=== PATIENT | male | born 1965 | race Caucasian/White ===

== ENCOUNTER 2017-12-13 09:14 | Inpatient (IN) | payer MEDICAID ==
[~2017-12-13] VITALS: Ht 190.5 cm; Wt 124.0 kg
[~2017-12-13 09:14] MED LIST: HTN MED; METFORMIN; NEUROPATHY MED; OMEP-110 PO; SUCR1ORA5 PO
[2017-12-13] MEDS ORDERED: TAMS-11 PO (11:47)
[2017-12-13] MEDS ORDERED: LISI-170 PO (11:47)
[2017-12-13] MEDS ORDERED: METF500T4 PO (11:47)
[2017-12-13] MEDS ORDERED: SUCR1TAB PO (11:47)
[2017-12-13] MEDS ORDERED: FURO20TA3 PO (11:47)
[2017-12-13] MEDS ORDERED: OMEP40CA6 PO (11:47)
[2017-12-13] MEDS ORDERED: SIMV20TA3 PO (11:47)
[2017-12-13] MEDS ORDERED: GLIP5TAB10 PO (11:47)
[2017-12-13] MEDS ORDERED: SODIUM CHLORIDE FLUSH 10ML SYR IVF ONE (12:00)
[2017-12-13] MEDS ORDERED: AMPICILLIN/SULBACTAM 3 GM in SODIUM CHLORIDE 0.9% 100 ML IVPB ONE (12:00)
[2017-12-13 12:12] LABS: BASOPHILS # (AUTO) 0.03 x10^3/uL (0-0.1); BASOPHILS % (AUTO) 0 % (0-1); EOSINOPHILS # (AUTO) 0.16 x10^3/uL (0-0.4); EOSINOPHILS % (AUTO) 2 % (1-7); INTERNATIONAL NORMALIZED RATIO 1.06 (0.93-1.1); LYMPHOCYTES % (AUTO) 24 % (22-44); MD NO; MEAN CORPUSCULAR HGB CONC 33.5 g/dL (33.2-36.2); MEAN CORPUSCULAR VOLUME 86.6 fL (81-97); MEAN PLATELET VOLUME 7.8 fL (7.4-10.4); MONOCYTES # (AUTO) 0.68 x10^3/uL (0.2-0.8); MONOCYTES % (AUTO) 7 % (2-9); NEUTROPHILS # (AUTO) 6.18 x10^3/uL (1.8-6.8); NEUTROPHILS % (AUTO) 67 % (42-75); PLATELET COUNT 220 x10^3/uL (130-400); PROTHROMBIN TIME 10.9 Seconds (9.6-11.5); RED BLOOD COUNT 5.49 x10^6/uL (4.38-5.82); RED CELL DISTRIBUTION WIDTH 13.8 % (9.4-14.8)
[2017-12-13 12:17] LABS: ALANINE AMINOTRANSFERASE 23 U/L (12-78); ALBUMIN 3.5 g/dL (3.4-5.0); ANION GAP 8 mmol/L (5-15); CALCIUM 8.9 mg/dL (8.5-10.1); CHLORIDE 98 mmol/L (98-107); CREATININE 0.94 mg/dL (0.7-1.3)
[2017-12-13 12:17] LABS: HCT (SEDRATE) 47.2 % (39.2-51.8)
[2017-12-13 12:24] LABS: ALKALINE PHOSPHATASE 76 U/L (45-117); BILIRUBIN,TOTAL 0.3 mg/dL (0.2-1.0); TOTAL PROTEIN 7.7 g/dL (6.4-8.2)
[2017-12-13] MEDS ORDERED: VANCOMYCIN PER PHARMACY MC PRN (13:00)
[2017-12-13] MEDS: AMPICILLIN/SULBACTAM 3 GM in SODIUM CHLORIDE 0.9% 100 ML IV SCH ×2 (13:00→20:48)
[2017-12-13] MEDS ORDERED: ENALAPRILAT 1.25 MG/ML, 2ML IVPush PRN (13:00)
[2017-12-13] MEDS ORDERED: ONDANSETRON ODT 4 MG PO PRN (13:00)
[2017-12-13] MEDS ORDERED: ONDANSETRON 2MG/ML, 2ML IVPush PRN (13:00)
[2017-12-13] MEDS ORDERED: ACETAMINOPHEN 325 MG TABLET PO PRN (13:00)
[2017-12-13] MEDS ORDERED: DEXTROSE 4 GM TAB.CHEW PO PRN (13:00)
[2017-12-13] MEDS ORDERED: HYDROcodone/APAP 5/325 TABLET PO PRN (13:00)
[2017-12-13] MEDS ORDERED: DEXTROSE 50%, 50ML SYRINGE IVPush PRN (13:00)
[2017-12-13] MEDS ORDERED: LABETALOL 5MG/ML, 20ML IVPush PRN (13:00)
[2017-12-13] MEDS ORDERED: DOCUSATE 100 MG CAPSULE PO PRN (13:00)
[2017-12-13] MEDS ORDERED: POLYETHYLENE GLYCOL 17 GM PACKET PO PRN (13:00)
[2017-12-13] MEDS ORDERED: GLUCAGON 1 MG IM PRN (13:00)
[2017-12-13 13:38] LABS: HEMOGLOBIN A1C 10.5 % (4.2-6.3)
[2017-12-13 14:24] VITALS: BP 123/79
[2017-12-13] MEDS ORDERED: PHARMACOKINETIC MONITORING MC PRN (14:30)
[2017-12-13] MEDS ORDERED: PHARMACOKINETIC CONSULTATION MC ONE (14:30)
[2017-12-13] MEDS ORDERED: GADOBUTROL 10 MMOL/10 ML PFS ONE (15:32)
[2017-12-13] MEDS: SODIUM CHLORIDE 0.9% 1,000 ML IV SCH (17:11)
[2017-12-13] MEDS: SUCRALFATE 1 GM TABLET PO SCH ×2 (17:11→20:48)
[2017-12-13] MEDS: ENOXAPARIN 40 MG/0.4 ML SQ SCH (17:11)
[2017-12-13] MEDS: VANCOMYCIN 2,000 MG in SODIUM CHLORIDE 0.9% 500 ML IV SCH (17:12)
[2017-12-13] MEDS: NICOTINE 14MG/24 HR PATCH.TD24 TD SCH (17:12)
[2017-12-13] MEDS: INSULIN LISPRO 100 UNITS/ML, PEN SQ-INSULIN SCH ×2 (17:43→21:10)
[2017-12-13 19:10] VITALS: BP 107/67
[2017-12-13] MEDS: SODIUM CHLORIDE FLUSH 10ML SYR IVF SCH (20:48)
[2017-12-13] MEDS: OMEPRAZOLE 20 MG CAPSULE.DR PO SCH (20:48)
[2017-12-13] MEDS: TAMSULOSIN 0.4 MG CAP.ER.24H PO SCH (20:48)
[2017-12-13] MEDS: SIMVASTATIN 20 MG TABLET PO SCH (20:48)
[2017-12-14 02:57] VITALS: BP 108/64
[2017-12-14] MEDS: AMPICILLIN/SULBACTAM 3 GM in SODIUM CHLORIDE 0.9% 100 ML IV SCH ×4 (03:12→21:42)
[2017-12-14 05:35] LABS: BASOPHILS # (AUTO) 0.03 x10^3/uL (0-0.1); BASOPHILS % (AUTO) 0 % (0-1); EOSINOPHILS # (AUTO) 0.18 x10^3/uL (0-0.4); EOSINOPHILS % (AUTO) 2 % (1-7); LYMPHOCYTES # (AUTO) 1.98 x10^3/uL (1-3.4); LYMPHOCYTES % (AUTO) 23 % (22-44); MD NO; MEAN CORPUSCULAR HEMOGLOBIN 29.1 pg (27.5-34.5); MEAN CORPUSCULAR HGB CONC 33.7 g/dL (33.2-36.2); MEAN CORPUSCULAR VOLUME 86.4 fL (81-97); MEAN PLATELET VOLUME 7.7 fL (7.4-10.4); MONOCYTES # (AUTO) 0.63 x10^3/uL (0.2-0.8); MONOCYTES % (AUTO) 7 % (2-9); NEUTROPHILS # (AUTO) 5.87 x10^3/uL (1.8-6.8); NEUTROPHILS % (AUTO) 68 % (42-75); PLATELET COUNT 206 x10^3/uL (130-400); RED BLOOD COUNT 5.07 x10^6/uL (4.38-5.82); RED CELL DISTRIBUTION WIDTH 13.8 % (9.4-14.8)
[2017-12-14 05:47] LABS: CHLORIDE 101 mmol/L (98-107)
[2017-12-14 05:55] LABS: ANION GAP 6 mmol/L (5-15); CALCIUM 8.3 mg/dL (8.5-10.1); CREATININE 0.96 mg/dL (0.7-1.3)
[2017-12-14] MEDS: SUCRALFATE 1 GM TABLET PO SCH ×4 (06:23→21:42)
[2017-12-14] MEDS: SODIUM CHLORIDE 0.9% 1,000 ML IV SCH (06:23)
[2017-12-14] MEDS: VANCOMYCIN 2,000 MG in SODIUM CHLORIDE 0.9% 500 ML IV SCH ×2 (06:24→16:51)
[2017-12-14 08:18] VITALS: BP 114/72
[2017-12-14] MEDS: FUROSEMIDE 20 MG TABLET PO SCH (08:36)
[2017-12-14] MEDS: LISINOPRIL 10 MG TABLET PO SCH (08:36)
[2017-12-14] MEDS: OMEPRAZOLE 20 MG CAPSULE.DR PO SCH ×2 (08:37→21:46)
[2017-12-14] MEDS: SODIUM CHLORIDE FLUSH 10ML SYR IVF SCH ×2 (08:37→21:46)
[2017-12-14] MEDS: INSULIN LISPRO 100 UNITS/ML, PEN SQ-INSULIN SCH ×4 (08:37→21:03)
[2017-12-14 12:31] VITALS: BP 97/66
[2017-12-14] MEDS: NICOTINE 14MG/24 HR PATCH.TD24 TD SCH (16:50)
[2017-12-14] MEDS: metFORMIN 500 MG TABLET PO SCH (16:51)
[2017-12-14] MEDS: ENOXAPARIN 40 MG/0.4 ML SQ SCH (16:51)
[2017-12-14 20:43] VITALS: BP 106/69
[2017-12-14] MEDS: TAMSULOSIN 0.4 MG CAP.ER.24H PO SCH (21:42)
[2017-12-14] MEDS: SIMVASTATIN 20 MG TABLET PO SCH (21:43)
[2017-12-15] MEDS: SODIUM CHLORIDE 0.9% 1,000 ML IV SCH (01:46)
[2017-12-15 02:05] VITALS: BP 107/65
[2017-12-15] MEDS: AMPICILLIN/SULBACTAM 3 GM in SODIUM CHLORIDE 0.9% 100 ML IV SCH (03:25)
[2017-12-15] MEDS: SUCRALFATE 1 GM TABLET PO SCH ×2 (05:23→11:53)
[2017-12-15] MEDS: VANCOMYCIN 2,000 MG in SODIUM CHLORIDE 0.9% 500 ML IV SCH (05:23)
[2017-12-15 06:18] VITALS: BP 109/70
[2017-12-15] MEDS ORDERED: DOXY100T PO (06:59)
[2017-12-15] MEDS: FUROSEMIDE 20 MG TABLET PO SCH (08:40)
[2017-12-15] MEDS: OMEPRAZOLE 20 MG CAPSULE.DR PO SCH (08:40)
[2017-12-15] MEDS: LISINOPRIL 10 MG TABLET PO SCH (08:40)
[2017-12-15] MEDS: metFORMIN 500 MG TABLET PO SCH (08:40)
[2017-12-15] MEDS: SODIUM CHLORIDE FLUSH 10ML SYR IVF SCH (08:46)
[2017-12-15] MEDS: INSULIN LISPRO 100 UNITS/ML, PEN SQ-INSULIN SCH ×2 (08:46→11:53)
[2017-12-15] MEDS ORDERED: DOXYCYCLINE 100MG TABLET PO SCH (09:00)
== END 2017-12-15 15:53 | disposition home health service (06) | DRG 603 ==
LOC: ED 12:14 → EDIP 12:27 → 3NE 14:02 → DCLOUNGE 12-15 15:33
PROVIDERS: ADMIT Family Medicine; ATTEND Family Medicine
DX: L03.031 Cellulitis of right toe (principal); E11.621 Type 2 diabetes mellitus with foot ulcer; L97.519 Non-pressure chronic ulcer of other part of right foot with unspecified severity; E11.65 Type 2 diabetes mellitus with hyperglycemia; E11.622 Type 2 diabetes mellitus with other skin ulcer; E78.00 Pure hypercholesterolemia, unspecified; F17.210 Nicotine dependence, cigarettes, uncomplicated; I10 Essential (primary) hypertension; I87.2 Venous insufficiency (chronic) (peripheral); K21.9 Gastro-esophageal reflux disease without esophagitis; K25.9 Gastric ulcer, unspecified as acute or chronic, without hemorrhage or perforation; Z80.42 Family history of malignant neoplasm of prostate; Z87.11 Personal history of peptic ulcer disease
CPT/HCPCS: 36415; 80048; 80053; 82962; 83036; 85025; 85610; 85651; 86140; 87040; 87070; 87077; 87147; 87186; 87205; 93922; A9585; J0295; J1650; J3370; J1815; J7030; J7040

== ENCOUNTER 2018-02-22 09:30 | Emergency (ER) | payer OTHER ==
[~2018-02-22] VITALS: Ht 190.5 cm; Wt 99.7 kg
[~2018-02-22 09:30] MED LIST changes: +DOXY100T PO; +FURO20TA3 PO; +GLIP5TAB10 PO; +LISI-170 PO; +METF500T4 PO; +OMEP40CA6 PO; +SIMV20TA3 PO; +SUCR1TAB PO; +TAMS-11 PO
[2018-02-22] MEDS ORDERED: SODIUM CHLORIDE FLUSH 10ML SYR IVF ONE (10:00)
[2018-02-22] MEDS ORDERED: SODIUM CHLORIDE 0.9% 1,000ML IVBOLUS ONE (10:00)
[2018-02-22 10:13] LABS: BASOPHILS # (AUTO) 0.03 x10^3/uL (0-0.1); BASOPHILS % (AUTO) 0 % (0-1); EOSINOPHILS # (AUTO) 0.07 x10^3/uL (0-0.4); EOSINOPHILS % (AUTO) 1 % (1-7); LYMPHOCYTES # (AUTO) 2.52 x10^3/uL (1-3.4); LYMPHOCYTES % (AUTO) 27 % (22-44); MD NO; MEAN CORPUSCULAR HGB CONC 33.5 g/dL (33.2-36.2); MEAN CORPUSCULAR VOLUME 86.7 fL (81-97); MEAN PLATELET VOLUME 7.2 fL (7.4-10.4); MONOCYTES # (AUTO) 0.57 x10^3/uL (0.2-0.8); MONOCYTES % (AUTO) 6 % (2-9); NEUTROPHILS # (AUTO) 6.29 x10^3/uL (1.8-6.8); NEUTROPHILS % (AUTO) 66 % (42-75); PLATELET COUNT 171 x10^3/uL (130-400); RED BLOOD COUNT 5.22 x10^6/uL (4.38-5.82); RED CELL DISTRIBUTION WIDTH 15.2 % (9.4-14.8)
[2018-02-22 10:30] LABS: ALANINE AMINOTRANSFERASE 24 U/L (12-78); ALBUMIN 3.2 g/dL (3.4-5.0); ANION GAP 11 mmol/L (5-15); CALCIUM 8.3 mg/dL (8.5-10.1); CHLORIDE 98 mmol/L (98-107)
[2018-02-22 10:33] LABS: ALKALINE PHOSPHATASE 65 U/L (45-117); BILIRUBIN,TOTAL 0.7 mg/dL (0.2-1.0); TOTAL PROTEIN 6.5 g/dL (6.4-8.2)
[2018-02-22 11:19] LABS: MICROSCOPIC NOT IND
[2018-02-22 11:22] LABS: CULTURE INDICATED? NO
[2018-02-22 13:40] VITALS: BP 125/82
== END 2018-02-22 14:04 | disposition home or self-care (01) ==
LOC: ED 10:49
DX: R53.1 Weakness (principal); E11.65 Type 2 diabetes mellitus with hyperglycemia; I10 Essential (primary) hypertension; E78.00 Pure hypercholesterolemia, unspecified; K21.9 Gastro-esophageal reflux disease without esophagitis; E11.40 Type 2 diabetes mellitus with diabetic neuropathy, unspecified
CPT/HCPCS: 36415; 71045; 74176; 80053; 81003; 82140; 83690; 85025; 96360; 99285; J7030

== ENCOUNTER → 2019-02-16 | Outpatient (CLI) | payer MEDICAID ==
[~2019-02-16] MED LIST changes: +GADOBUTROL 15 MMOL/15 ML VIAL ONE; +METF500T17 PO; -METF500T4 PO
[2019-02-16 17:00] LABS: CREATININE 0.93 mg/dL (0.7-1.3)
== END | disposition home or self-care (01) ==
LOC: RAD 16:16
PROVIDERS: ATTEND Nurse Practitioner Family
DX: M19.071 Primary osteoarthritis, right ankle and foot (principal); E11.621 Type 2 diabetes mellitus with foot ulcer; R60.0 Localized edema
CPT/HCPCS: 36415; 73720; 82565; A9585